=== PATIENT | male | born 1940 | race Caucasian/White ===

== ENCOUNTER 2017-10-01 02:24 | Emergency (ER) | payer MEDICARE ==
[2017-10-01] MEDS ORDERED: LIDOCAINE 1%/EPINEPHRINE INJ 20 ML VIAL INJ ONE (02:31)
--- NOTE | 2017-10-01 02:34 | ER Document Report ---
ED General - General Stated Complaint: HEAD PAIN Time Seen by Provider: 10/01/17 02:28 Notes: Patient is a pleasant 76-year-old male who presents with complaint of bleeding from a wound on his left forehead. Patient had a biopsy over this area done by concaving machine operator. He is on Plavix and aspirin. He has been taking his Plavix and aspirin. Tonight he started bleeding. He therefore called EMS was brought here. He has no other complaints. He otherwise feels well. - Related Data Allergies/Adverse Reactions: sulfamethoxazole [From Septra] Allergy (Severe, Verified 01/03/13 17:25) hives, tongue swelling closes throat trimethoprim [From Septra] Allergy (Severe, Verified 01/03/13 17:25) hives, tongue swelling closes throat duloxetine HCl [From Cymbalta] Allergy (Verified 01/03/13 17:25) Past Medical History - Social History Smoking Status: Unknown if Ever Smoked Frequency of alcohol use: None Drug Abuse: None Family History: Reviewed & Not Pertinent - Past Medical History Cardiac Medical History: Reports: Hx Hypercholesterolemia, Hx Hypertension Pulmonary Medical History: Neurological Medical History: GI Medical History: Reports: Hx Gastroesophageal Reflux Disease, Hx Hiatal Hernia Musculoskeltal Medical History: Reports Hx Arthritis Infectious Medical History: Past Surgical History: Denies: Hx Open Heart Surgery - STENTS X 4 - Immunizations Hx Diphtheria, Pertussis, Tetanus Vaccination: Yes Review of Systems - Review of Systems Notes: My Normal Review Basic REVIEW OF SYSTEMS: CONSTITUTIONAL : Denies fever, chills, or sweats. Denies recent illness. SKIN: Bleeding from biopsied wound on forehead. HEMATOLOGIC : On Plavix NEUROLOGICAL: Denies altered mental status or loss of consciousness. Denies headache. Denies weakness or paralysis or loss of use of either side. Denies problems with gait or speech. Denies sensory or motor loss. ALL OTHER SYSTEMS REVIEWED AND NEGATIVE. Physical Exam - Vital signs Vitals: Temp Pulse BP Pulse Ox 97.9 F 52 L 140/56 H 95 10/01/17 02:35 10/01/17 02:35 10/01/17 02:35 10/01/17 02:35 - Notes Notes: General Appearance: Well nourished, alert, cooperative, no acute distress, no obvious discomfort. Well appearing. Vitals: reviewed, See vital signs table. Head: Patient has a dime sized wound over the left forehead from his recent biopsy. He does have some venous oozing coming from the lateral aspect of this wound. Eyes: PERRL, EOMI, Conjuctiva clear Mouth: No decreasd moisture Skin: warm, dry, appropriate color, no rash Neuro: speech clear, oriented x 3, normal affect, responds appropriately to questions. Course - Re-evaluation Re-evalutation: 10/01/17 03:41 Patient looks well. I injected a milliliter of lidocaine with epinephrine the base of the wound. I then soaked gauze with lidocaine epinephrine placed on head and placed compression dressing. Just over an hour later I rechecked the wound. All bleeding had stopped. Placed a new dressing of the patient's and told him to leave there for 24 hours. Encouraged him follow-up with his concaving machine operator. Encourage him return to ER if he has recurrent bleeding or has any further concerns. Patient agrees with plan will be discharged home. Dictation of this chart was performed using voice recognition software; therefore, there may be some unintended grammatical errors. 10/01/17 04:07 - Vital Signs Vital signs: Temp Pulse Resp BP Pulse Ox 97.9 F 52 L 140/56 H 95 10/01/17 02:35 10/01/17 02:35 10/01/17 02:35 10/01/17 02:35 Discharge - Discharge Clinical Impression: Bleeding from wound Condition: Good Disposition: HOME, SELF-CARE Additional Instructions: Please change your dressing in 24 hours. Please return to [facility] ER if you have recurrent bleeding, fevers, or feel unwell. Follow up with your concaving machine operator by Thursday.
[2017-10-01 04:21] VITALS: BP 139/55
== END 2017-10-01 04:20 | disposition home or self-care (01) ==
LOC: ER 02:24
DX: L76.21 Postprocedural hemorrhage of skin and subcutaneous tissue following a dermatologic procedure (principal); R51 Headache; Z79.02 Long term (current) use of antithrombotics/antiplatelets; Z79.82 Long term (current) use of aspirin; I10 Essential (primary) hypertension
CPT/HCPCS: 99283; J3490